=== PATIENT | female | born 1985 | race Caucasian/White ===

== ENCOUNTER 2017-02-20 15:31 | Outpatient (CLI) | payer OTHER ==
[~2017-02-20] VITALS: Ht 157.5 cm; Wt 105.5 kg
[~2017-02-20 15:31] MED LIST: PREN1TAB49 PO
[2017-02-20 15:44] VITALS: BP 192/80; PULSE 102; RESP 18; Ht 157.5 cm; Wt 105.5 kg
[2017-02-20] MEDS ORDERED: LISI40TA9 PO (16:04)
[2017-02-20] MEDS ORDERED: AMLO-147 PO (16:04)
--- NOTE | 2017-02-20 16:10 | PN ---
Date/Time of Note Date/Time of Note DATE: 02/20/17 TIME: 16:06 Outpatient Progress Note Chief Complaint Hypertension/diabetes//preeclampsia HPI Hypertension/patient blood pressure is still elevated, patient was preeclampsia , patient is taking blood pressure medication, and still blood pressure limited , no headache or dizziness, no local focal weakness, Diabetes/no polydipsia poly-hypoglycemia, patient has gestational diabetes, Preeclampsia/patient has preeclampsia, patient had a section, patient doing very well, Review of Systems Const: No Fever, no chills, no Wt. loss, no Fatigue, normal appetite, no diaphoresis. Eyes: No pain, no discharge, no redness, no visual change, no foreign body. ENT: No pain, no bleeding, no congestion, no sore throat, no dysphagia, no discharge or rhinitis. Lymph: No adenopathy, no tender nodes, no lymphedema. Resp: No SOB, no cough, no sputum, no wheezing, no chest pain. CV: No chest pain, no palpitaions, no GUTIERREZ, no PND, no edema. GI: Normal appetite, no pain, no nausea, no vomiting, no diarrhea, no blood, no constipation. : No frequency, no urgency, no dysuria, no hematuria, no flank pain, no discharge, no bleeding. Musc: No bone/joint pain, no back pain, no neck pain, no knee pain, no restricted ROM. Skin: No rash, no skin lesions, no erythema, no laceration, no bruising, no pruritus. Neuro: No NASCIMENTO, no dizziness, no syncope, no seizure, no focal-weakness. Endo: No polyuria, no polydypsia, no dry-skin, no temp-intolerance. Psych: No hallucinations, no depression, no anxiety, no suicidal ideation. Ext: No edema, no pain, no ulcer, no weakness. Physical Exam Vital Signs Date Time Temp Pulse Resp B/P Pulse Ox O2 Delivery O2 Flow Rate FiO2 02/20/17 15:44 98.8 102 18 192/80 97 Room Air General Appearance: A 31 year-old female who appears well-developed, well- nourished, in no acute distress. HEENT: Head normocephalic, atraumatic. Pupils equal, round, reactive to light and accommodate. Sclerae are no jaundice. Nasal turbinates pink without erythema or nasal discharge. Mucous membranes pink and moist without lesions. Oropharynx clear without any exudate or discharge. NECK: Supple. Trachea midline, No thyromegaly, No cervical lymphadenopathy, No mass, No carotid bruits, No JVD, Carotid pulses 2+ bilaterally. PULMONARY: Clear to auscultaion bilaterally, No retractions, Chest expansion symmetric bilaterally, no rales, no ronchi, no dulness on percussion. CARDIAC: Normal SI and S2, Regular rate and rythm, no murmur, gallop, or rub. GASTROINTESTINAL: Abdomen is soft, non-tender, Non Rigid, No distention, Positive bowel sounds x4 quadrants, Liver normal. SKIN: Warm, dry, no rash, no bruise, no echmosis. Scar of section, EXTREMITIES: Bilateral lower extremities normal, no edema, no phlabitus, pulse palpable, no contracture. MUSCULOSKELETAL: Spine Normal, Non-tender, Normal range of motion, No swelling, no deformity, no clubbing, or cyanosis, the patient has no edema to bilateral lower extremities, dorsalis pedis pulses palpable bilaterally. NEUROLOGIC: The patient is awake, alert, oriented, responding to yes/no questions appropriately, moving all extremities, cranial nerve intact, normal strenght, normal power, normal coordination, normal gait. Allergies Coded Allergies: No Known Allergies (Verified Allergy, Unknown, 11/28/14) PMH No smoking no drinking, section, Social Hx N no smoking no drinking, Family Hx Noncontributory Assessment/Plan Impression Hypertension poor control Gestational diabetes Preeclampsia resolved/ section Plan Continue all medication, patient has taken a blood pressure medication, still blood pressure significantly elevated, Patient will be given a prescription for clonidine, patient has blood pressure machine, patient will be taking clonidine 0.1 mg q. 8 hour as needed for blood pressure 150 systolic or above, Patient advised to lose weight, control the blood sugar, control the diet, follow with her winchman/crane operator, and primary care physician, Medications Home Meds Reported Medications Amlodipine Besylate* (Amlodipine Besylate*) 10 Mg Tablet, 10 MG PO DAILY, #30 TAB 02/20/17 Lisinopril* (Lisinopril*) 40 Mg Tablet, 40 MG PO DAILY, #30 TAB 02/20/17 Vits W-Ca,Fe,Fa(<1MG) () 1 Tab Tablet, 1 TAB PO 5/18/12 ALICIA ANGELO MD February 20, 2017 16:10
== END 2017-02-20 16:41 | disposition home or self-care (01) ==
LOC: DCC 15:31
PROVIDERS: ATTEND Internal Medicine
DX: I10 Essential (primary) hypertension (principal); E11.9 Type 2 diabetes mellitus without complications

== ENCOUNTER 2018-10-31 11:41 | Inpatient (IN) | payer OTHER ==
[~2018-10-31] VITALS: Ht 157.5 cm; Wt 125.8 kg
[~2018-10-31 11:41] MED LIST changes: +AMLO-147 PO; +LISI40TA3 PO
[2018-10-31] MEDS ORDERED: INSU100V3 IJ ×2 (12:10)
[2018-10-31] MEDS ORDERED: ASPI-535 PO (12:10)
[2018-10-31] MEDS ORDERED: INSU100C SQ ×2 (12:10)
[2018-10-31 12:11] VITALS: Ht 157.5 cm; Wt 125.8 kg
[2018-10-31 12:12] VITALS: BP 133/78; PULSE 81; RESP 20
[2018-10-31] MEDS ORDERED: OXYTOCIN 30 UNITS/LR 500 ML IV PRN (17:00)
[2018-10-31] MEDS ORDERED: CARBOPROST 250 MCG INJ IM PRN (17:00)
[2018-10-31] MEDS ORDERED: METHYLERGONOVINE 0.2 MG INJ IM PRN (17:00)
[2018-10-31] MEDS ORDERED: OXYTOCIN 30 UNITS/LR 500 ML IV SCH (17:00)
[2018-10-31] MEDS ORDERED: CEFAZOLIN 3 GM in DEXTROSE 5% 100 ML IV SCH (17:00)
[2018-10-31] MEDS ORDERED: MISOPROSTOL 200 MCG TAB PR PRN (17:00)
[2018-10-31] MEDS ORDERED: DEXTROSE 5%-LR 1,000 ML IV PRN (17:30)
[2018-10-31] MEDS: LACTATED RINGER'S 1,000 ML IV SCH ×2 (18:00→22:17)
[2018-11-01] VITALS (17 sets, daily range): BP systolic 138–200; BP diastolic 65–94; PULSE 69–100; RESP 17–19
[2018-11-01] MEDS ORDERED: LIDOCAINE 1% (MPF) 30 ML INJ ONE (00:12)
[2018-11-01] MEDS: LACTATED RINGER'S 1,000 ML IV SCH (06:10)
[2018-11-01] MEDS ORDERED: DEXTROSE 5%-LR 1,000 ML IV SCH (14:35)
--- NOTE | 2018-11-01 14:51 | NUR ---
NIRAV Note: Referral received stating patient with a hx of anxiety while 9 weeks . SW met with patient on the L&D unit. Patient is a 33 year old female admitted at 37 weeks gestation. SW explained the role of SW and the reason for the referral. Patient reports having a number of life stressors that triggered her anxiety. Specifically the patients was deported last year but [facility] The family was originally living between [facility] and since the patients came back to the , they are now living with the patients mother in the [place] area. Patient describes living with her mother as stressful because her mothers apartment is not equip for her, her and their three children (ages 17, 6, and 21 months). Patient also endorsed having limited monthly income as she is currently receiving unemployment and her is unable to gain typical employment due to his immigration status. Patient reports that after she has recovered from the delivery of this baby, the family has made plans to move to [place]. Patient states that she has not been able to obtain a car seat due to limited financial resources. The patient is enrolled with [facility] services and receives food stamps monthly. Patient reports not receiving any lora aide because she was told her monthly income is too high. SW encouraged patient to follow up with [facility] regarding the need for lora aide assistance now that her family size will be increasing. This board writer e-mailed the [employer] program in regards to patient being unable to purchase a car seat. SW will endorse car seat follow up to weekday NIRAV.
[2018-11-01] MEDS ORDERED: morphine SULFATE/PF (10 MG/10 ML) INJ ONE (16:40)
[2018-11-01] MEDS ORDERED: BUPIVACAINE 0.75%/DEXT (SPINAL) 2 ML INJ ONE (16:40)
--- NOTE | 2018-11-01 17:07 | PREAC ---
Date/Time of Note Date/Time of Note DATE: 11/01/18 TIME: 17:02 Anesthesia Eval and Record Evaluation Time Pre-Procedure Interview DATE: 11/01/18 TIME: 16:19 Age 33 Sex female NPO: 8 hrs Preoperative diagnosis iup @ 37 wks., , gdm, spotting, non reassuring status, intrapartum htn, prev. c/s x 2, sterilization request Planned procedure repeat c/s, btl Past Medical History Past Medical History: Includes : : (8), Para: (3), Gestational age: (37 wks.), Gestational diabetes, Other (intrapartum htn) Surgery & Anesthesia Issues No known issue Meds Anticoagulation: No Beta Criss within 24 hr: No Reason Beta Criss not given: Pt. not on B-Criss Reported Medications Insulin Regular, Human (Humulin R) 100 Unit/1 Ml Vial, 18 UNIT IJ QHS, VIAL 10/31/18 Insulin Lispro (Humalog) 100 Unit/1 Ml Cartridge, 18 UNIT SQ AC LUNCH, EA 10/31/18 Insulin Lispro (Humalog) 100 Unit/1 Ml Cartridge, 28 UNIT SQ AC BREAKFAST, EA 10/31/18 Insulin Regular, Human (Humulin R) 100 Unit/1 Ml Vial, 46 UNIT IJ AC BREAKFAST, VIAL 10/31/18 Aspirin Ec (Aspir 81) 81 Mg Tablet.dr, 81 MG PO DAILY, #30 TAB 10/31/18 Vits W-Ca,Fe,Fa(<1MG) () 1 Tab Tablet, 1 TAB PO 02/28/12 Discontinued Reported Medications Amlodipine Besylate* (Amlodipine Besylate*) 10 Mg Tablet, 10 MG PO DAILY, #30 TAB 02/20/17 Lisinopril* (Lisinopril*) 40 Mg Tablet, 40 MG PO DAILY, #30 TAB 02/20/17 Current Medications Lactated Ringer's 1,000 ml @ 125 mls/hr Q8H IV Last administered on 11/01/18at 06:10; Admin Dose 125 MLS/HR; Start 10/31/18 at 16:57 Cefazolin Sodium 3 gm/Dextrose 100 ml @ 100 mls/hr ONCE IV ; Start 10/31/18 at 17:00 Oxytocin/Lactated Ringer's 500 ml @ 125 mls/hr POST IV ; Start 10/31/18 at 17:00 Oxytocin/Lactated Ringer's 500 ml @ 0 mls/hr ONCE PRN IV VAGINAL BLEEDING; Start 10/31/18 at 17:00 Methylergonovine Maleate (Methergine) 0.2 mg ONCE PRN IM VAGINAL BLEEDING; Start 10/31/18 at 17:00 Carboprost Tromethamine (Hemabate) 250 mcg ONCE PRN IM VAGINAL BLEEDING; Start 10/31/18 at 17:00 Misoprostol (Cytotec) 1,000 mcg ONCE PRN OH VAGINAL BLEEDING; Start 10/31/18 at 17:00 Dextrose/Lactated Ringer's 1,000 ml @ 125 mls/hr Q8H PRN IV BLOOD SUGAR LESS THAN 80 Last administered on 11/01/18at 14:39; Admin Dose 125 MLS/HR; Start 10/31/18 at 17:30 Meds reviewed: Yes Allergies Coded Allergies: No Known Allergy (Unverified , 10/31/18) Allergies Reviewed: Yes Labs/Studies Labs Reviewed: Reviewed by anesthesiologist Result Diagram: 10/31/18 1336 10/31/18 1730 Laboratory Tests 10/31/18 17:30 Blood Bank Test 10/31/18 17:30 Antibody Screen NEGATIVE Blood Type O POSITIVE Rh Immune Globulin Candidate NO test: Positive Studies: ECG (n/a), CXR (n/a) Pre-procedure Exam Last vitals Vital Signs Date Temp Pulse Resp B/P (MAP) Pulse Ox O2 O2 Flow FiO2 Time Delivery Rate 10/31/18 97.6 81 20 133/78 Room Air 12:12 (96) Airway: Adequate mouth opening, Adequate thyromental dist Mallampati: Mallampati III Teeth: Normal Lung: Normal Heart: Normal ASA Physical Status ASA physical status: 3 Emergency: E Planned Anesthetic General/MAC: TIVA (post baby) Neuraxial: Spinal Planned Pain Management Sub-arachniod narcotics Pre-operative Attestations Prior to commencing anesthesia and surgery, the patient was re-evaluated, there was verification of: *The patient's identity *The results of appropriate recent lab work and preoperative vital signs *The above evaluation not changing prior to induction *Anesthetic plan, risk benefits, alternative and complications discussed with patient/family; questions answered; patient/family understands, accepts and wishes to proceed. 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
--- NOTE | 2018-11-01 17:08 | PAC ---
Date/Time of Note Date/Time of Note DATE: 11/01/18 TIME: 21:00 Post-Anesthesia Notes Post-Anesthesia Note Last documented vital signs Vital Signs Date Temp Pulse Resp B/P (MAP) Pulse Ox O2 O2 Flow FiO2 Time Delivery Rate 10/31/18 97.6 81 20 133/78 Room Air 12:12 (96) Activity: WNL Respiratory function: WNL Cardiovascular function: WNL Mental status: Baseline Pain reasonably controlled: Yes Hydration appropriate: Yes Nausea/Vomiting absent: Yes IZZY VELEZ MD Nov 01, 2018 17:08
[2018-11-01] MEDS ORDERED: LACTATED RINGER'S 1,000 ML IV ONE (17:11)
--- NOTE | 2018-11-01 17:11 | OPPN ---
Date/Time of Note Date/Time of Note DATE: 11/02/18 TIME: 00:30 Anesthesia Follow up Anesthesia Follow up Last documented vital signs Vital Signs Date Temp Pulse Resp B/P (MAP) Pulse Ox O2 O2 Flow FiO2 Time Delivery Rate 10/31/18 97.6 81 20 133/78 Room Air 12:12 (96) Respiratory function: WNL Cardiovascular function: WNL Comments pod #1 duramorph it followup. S: pt. pod #1. min. bt pain. min. n/v. min. need for bt pain meds ie., nsaids, opiates. ambulating O: vss, afeb. A: min bt pain sec. to it mso4. P: no complications. IZZY VELEZ MD Nov 01, 2018 17:11
[2018-11-01] MEDS ORDERED: METOCLOPRAMIDE 10 MG INJ ONE (17:17)
[2018-11-01] MEDS ORDERED: ONDANSETRON 4 MG INJ ONE (17:17)
[2018-11-01] MEDS ORDERED: OXYTOCIN 10 UNIT INJ ONE (17:18)
[2018-11-01] MEDS ORDERED: MIDAZOLAM 1 MG/ML 2 ML INJ ONE (17:18)
[2018-11-01] MEDS ORDERED: METOCLOPRAMIDE 10 MG INJ IV PRN (17:30)
[2018-11-01] MEDS ORDERED: DIPHENHYDRAMINE 50 MG INJ IV PRN ×2 (17:30)
[2018-11-01] MEDS ORDERED: NALBUPHINE HCL (10 MG/1 ML) INJ IV PRN (17:30)
[2018-11-01] MEDS ORDERED: ONDANSETRON 4 MG INJ IV PRN ×2 (17:30)
[2018-11-01] MEDS ORDERED: ZOLPIDEM 5 MG TAB PO PRN (17:30)
[2018-11-01] MEDS ORDERED: MEPERIDINE 25 MG INJ IV PRN (17:30)
[2018-11-01] MEDS ORDERED: MIDAZOLAM 1 MG/ML 2 ML INJ IV PRN (17:30)
[2018-11-01] MEDS ORDERED: NALOXONE (0.4 MG/ML) INJ IV PRN (17:30)
[2018-11-01] MEDS ORDERED: HYDROmorphONE 0.5 MG/0.5 ML SYG IV PRN ×2 (17:30)
[2018-11-01] MEDS ORDERED: DIPHENHYDRAMINE 50 MG INJ ONE (18:33)
[2018-11-01] MEDS ORDERED: LACTATED RINGER'S 1,000 ML IV SCH (18:49)
[2018-11-01] MEDS ORDERED: OXYTOCIN 30 UNITS/LR 500 ML IV SCH (18:49)
--- NOTE | 2018-11-01 18:57 | OPR ---
Operative Report Planned Procedure Procedure date Nov 01, 2018 Procedure(s) Repeat with bilateral tubal ligation. Performed by see signature line Debt Collection Specialist: ESTEFANY COX M.D. Anesthesiologist: IZZY VELEZ MD Pre-procedure diagnosis IUP at 37w 3d. A2 diabetic, on insulin. Gestational hypertension. Obesity. Desires permanent sterilization. 2 [id number] Anesthesia Type: Ntuem0m spinal Post-Procedure Post-procedure diagnosis Same. Findings Viable baby boy weighing 3870 grams or 8#b 9 oz, 19.5" long, and with Apgars of 8/9. Estimated Blood Loss: 400 - 500 mls Specimen(s) bilateral tubes. Grafts/Implant(s) none Complication(s) none Pt Condition post procedure: stable Disposition: PACU Procedure Description Under satisfactory spinal anesthesia, the patient was prepped and draped and placed in a supine position, tilted to the left. Pfannenstiel incision was made, carried through the subcutaneous tissue. Bleeders brought under control with electrocautery. Fascia incised to the length of the incision. Rectus muscles from the fascia, divided midline. Peritoneum exposed, entered through a transverse incision. Transverse incision was made in the lower segment of the uterus. Amniotic sac ruptured. Clear amniotic fluid noted. The baby was OP and was delivered with the assist of a vacuum in order to flex the head.The head was delivered and then the rest of the body. The mouth and nares were bulb suctioned. The cord was doubly clamped and cut. The baby was brought to the warmer and the team for immediate attention. The placenta was delivered manually intact. Uterine cavity was cleaned with wet sponge and drainage established. Uterus closed in the abdomen in 2 layers using #1 chromic in continuous fashion. Peritoneal cavity irrigated with warm saline. Bilateral salpingectomies were done with some difficulty as the uterus remained in the abdomen. Sponge, needle and instrument count reported to be correct. Abdominal peritoneum closed with 2-0 Chromic continuously. Rectus muscle approximated with the same suture. Fascia closed with 0-Vicryl. The subcutaneous tissue was irrigated and closed with 2-0 Chromic and skin was closed with 3-0 Monocryl in a subcuticular stitch. Steristrips with Mastosol were placed. Estimated blood loss 500 mL. Urine was clear. A pressure dressing was applied over all and the pt was transferred to the recovery room in excellent condition. SARITA VERNON MD Nov 01, 2018 18:57
[2018-11-01] MEDS ORDERED: LANOLIN HPA 1 PKT TOP PRN (19:00)
[2018-11-01] MEDS ORDERED: NACL 0.9% 3 ML SYG IV SCH (19:00)
[2018-11-01] MEDS ORDERED: OXYTOCIN 30 UNITS/LR 500 ML IV PRN (19:00)
[2018-11-01] MEDS ORDERED: METHYLERGONOVINE 0.2 MG INJ IM PRN (19:00)
[2018-11-01] MEDS ORDERED: OXYCODONE/ACETAMINOPHEN (5/325) TAB PO PRN (19:00)
[2018-11-01] MEDS ORDERED: MISOPROSTOL 200 MCG TAB PR PRN (19:00)
[2018-11-01] MEDS ORDERED: CARBOPROST 250 MCG INJ IM PRN (19:00)
[2018-11-01] MEDS ORDERED: LABETALOL HCL 20MG INJ ONE (19:51)
[2018-11-01] MEDS ORDERED: LABETALOL HCL 20MG INJ IV ONE (20:00)
[2018-11-01] MEDS: KETOROLAC 30 MG INJ IV PRN (20:36)
--- NOTE | 2018-11-02 01:02 | NUR ---
Late entry: @1929 Report received from L&D nurse, Christian Beltran RN. Assumed care of pt. Dr. Rainey notified of pt's elevated BP 189/88. Pt asymptomatic. No new orders given. @1945 Pt's BP 196/94. BP auto rechecked after a minute and it went up 200/89. Pt denies H/A, blurry vision or epigastric pain. Pt stated she feels a little bit dizzy. Dr. Mckinnon laborist notified. Order received to give Labetalol 20 mg IV push and recheck BP in 20 minutes. Call M.D for result. Order carried out. @1957 Labetalol 20 mg given IV by Joann, charge nurse. No distress noted. @2014 Pt's BP 180/[address] Mckinnon aware of pt's PIH lab results. No new orders given. @2029 Pt's BP 194/75. Pt c/o incisional pain with pain level 7/10. Toradol 30 mg IV given. Pt continues to deny H/A, blurry vision, or epigastric pain. Pt states she still feels a little dizzy. Dr. Mckinnon notified. Per Dr. Mckinnon, call her if BP is above 170s/90s. Pt encouraged to get some rest. Lights were dimmed. @2032 Dr. Mckinnon came to bedside to see pt. Dr. Mckinnon made aware of pt's BP 184/83. No orders given. @2102 Pr verbalized pain relief. Pain level down to 2/10. BP 164/72. @2114 Pt's BP 171/75. Dr. Mckinnon currently at the delivery. Pt continues to deny H/A, blurry vision, or epigastric pain. Pt states dizziness is going away. Pt being closely monitored. @2129 Pt's BP 160/70. Pt resting at this time. @2299 Sophia care rendered. Small lochia noted. Gown changed. @2300 Vitals signs are stable. @2304 Pt transferred to [facility] via [facility] in stable condition. Report given to Julia Parr RN
[2018-11-02 03:30] VITALS: BP 139/66; PULSE 76; RESP 21
--- NOTE | 2018-11-02 05:14 | NUR ---
EOSS: STABLE CONDITION. ASYMPTOMATIC. NITZA CARE DONE. VITAL SIGNS MONITORED. BONDING WELL WITH BABY. WILL CONTINUE TO MONITOR.
[2018-11-02] MEDS: KETOROLAC 30 MG INJ IV PRN ×2 (06:11→11:20)
[2018-11-02 08:00] VITALS: BP 144/78; PULSE 86; RESP 18
[2018-11-02 09:00] VITALS: BP 128/65; PULSE 83; RESP 18
[2018-11-02] MEDS ORDERED: INFLUENZA VIRUS VACCINE 0.5 ML (DISPENSING) IM* ONE (10:00)
[2018-11-02] MEDS ORDERED: IBUPROFEN 800 MG TAB PO SCH (12:00)
[2018-11-02 12:30] VITALS: BP 158/77; PULSE 74; RESP 18
[2018-11-02] MEDS: LABETALOL 200 MG TAB PO SCH ×2 (13:45→21:00)
--- NOTE | 2018-11-02 14:48 | NUR ---
SW NOTE: DC PLANNING Received a call from Alley of [facility]. She stated the pt signed up with their program and they will f/u in 2 weeks. Pt informed Alley they have a car seat in storage which they used for the pt's daughter and they plan to bring that for day of discharge. Alley also discussed pt's sleeping arrangements with the pt and discussed options. The family plans to make arrangements to purchase a bassinet/crib from a [employer]rift shop. Alley stated she has also reached out to their tool programmer for additional resources. Baby may be discharged to the mother when medically cleared. RN to provide the discharge instructions at time of discharge. SW to remain available.
--- NOTE | 2018-11-02 15:00 | NUR ---
Pericare done then got patient up to the chair and she tolerated it well.
--- NOTE | 2018-11-02 15:00 | NUR ---
Diabetes Education Referral: Thank you for the referral. HbA1c (09/24/18) 7.1%; 125kg; ; delivered at 37.3 weeks a 8lb 9oz baby boy Pt stated she did not have T2DM before the but she stated she did have GDM during her last (s). Pt stated both her patents have T2DM and many other family members. Explained the risk of developing T2DM in the future. Discussed how exercise and diet can possibly prevent the onset. Pt verbalized that she wants to start loosing weight and walking more. Discussed the importance of continuing to monitor her BG AC meals until she follows up with her provider. Reviewed her new BG targets. Pt stated she has enough supplies at home. All questions answered.
--- NOTE | 2018-11-02 15:30 | NUR ---
Dr Mckinnon went to patients room and checked the patient,she is aware about the patients bp status ranging from 140s to 158 systolic and diastolics of 74 to 78,she is also aware of the blood sugar results.No new orders given,she said she already ordered labetatlol 200 mg po BID.
--- NOTE | 2018-11-02 15:58 | QN ---
Documentation Comment just bulping no flatus bp 141/77 FBS 129 2hr postprandial 129 abdomen soft wound dry lochia min calf neg for tenderness I & O ok A s/p RLTCS stable P as ordered had diabetic class KARO GALVAN MD Nov 02, 2018 15:58
[2018-11-02 16:00] VITALS: BP 141/77; PULSE 76; RESP 18
--- NOTE | 2018-11-02 17:30 | NUR ---
Eoss:Ambulated patient back to the bed,denies headache,dizziness,epigastric pain or blurry vision,rowley catheter discontinued and ivf discontinued.Bonding well with baby.
[2018-11-02] MEDS: IBUPROFEN 800 MG TAB PO SCH (18:26)
[2018-11-02 21:00] VITALS: BP 130/63; PULSE 87; RESP 19
[2018-11-03 04:00] VITALS: BP 130/61; PULSE 85; RESP 20
--- NOTE | 2018-11-03 04:33 | NUR ---
EOSS: STABLE CONDITION. VOIDED WELL, SHOWERED. LOCHIA MINIMAL. STERI STRIPS OPEN TO AIR. BONDING WELL WITH BABY.
[2018-11-03] MEDS: IBUPROFEN 800 MG TAB PO SCH ×5 (05:26→23:18)
[2018-11-03 08:30] VITALS: BP 145/72; RESP 18
[2018-11-03] MEDS: LABETALOL 200 MG TAB PO SCH ×2 (08:38→20:59)
[2018-11-03 12:15] VITALS: BP 158/72
[2018-11-03] MEDS: OXYCODONE/ACETAMINOPHEN (5/325) TAB PO PRN ×2 (14:06→21:00)
--- NOTE | 2018-11-03 15:15 | NUR ---
ACCU CHEC 193, PATIENT STATES HAD TWO PIECES OF SWEET BREAD , WILL REPEAT IN TWO HOURS
[2018-11-03 16:48] VITALS: BP 155/83; PULSE 74; RESP 20
--- NOTE | 2018-11-03 17:00 | NUR ---
EOSS ; PATIENT BP STABLE , ACC CHECK 141 AFTER 2 HOURS pp, BOUNDING WELL WITH INFANT , NO D/O PAIN @ THIS TIME , CONTINUE PLAN OF CARE
--- NOTE | 2018-11-03 17:42 | QN ---
Documentation Comment had Bowel movement baby is under light vss afebrile bp 140/70 BS 140 150 abdomen soft wound dry calf neg for tenderness lochia min A stable post R C/S#2 P as ordered KARO GALVAN MD Nov 03, 2018 17:42
[2018-11-03 20:00] VITALS: BP 172/73; PULSE 79; RESP 19
--- NOTE | 2018-11-03 21:30 | NUR ---
Blood pressure recheck: 144/76. P: 78. Patient stated that she was very upset and crying before when she was speaking to her on the phone. Concerned about her 's bilirubin and his potential need to have to stay in the hospital beyond their projected discharge date. She has a 6 y.o. and a 2 y.o. at home that she needs to care for also. She also expressed concern that her previous blood pressures would be on "her record". Was told that they would be charted along with this note about her emotional state when they were taken. That appeared to ease some of the patient's concerns. Denied headache and visual changes along with epigatric pain. Was told to call the nurse immediately, if she experience any of these symptoms. No pretibial edema and no clonus.
--- NOTE | 2018-11-03 23:40 | NUR ---
PAGED DR. MONTILLA AT [employer] AND AT [facility] TO INFORM OF PATIENT BP 163/79. NO RESPONSE. DR. MONTILLA IS LINE APPLIANCE ASSEMBLER FOR DR. STONE. PATIENT CONTINUES TO DENY HEADACHE, VISION CHANGES, EPIGASTRIC PAIN. C/O OF EXTREME FATIGUE.
[2018-11-03 23:50] VITALS: BP 163/79; RESP 19
[2018-11-04] VITALS (29 sets, daily range): BP systolic 134–183; BP diastolic 57–93; PULSE 81–96; RESP 16–20
[2018-11-04] MEDS ORDERED: MAGNESIUM SULFATE 2 GM/50 ML 50 ML IVPB ONE (01:00)
[2018-11-04] MEDS ORDERED: MAGNESIUM SULFATE 4 GM/100 ML 100 ML IVPB ONE ×2 (01:00→03:30)
--- NOTE | 2018-11-04 01:00 | NUR ---
RECEIVED CALL FROM DR. MONTILLA, REPORTED ELEVATED BP, AND RECEIVED ORDERS FOR MAGNESIUM SULFATE 4G BOLUS, 2GM/HR MAINTENANCE, CBC, CMP, URIC ACID, LAB MAG LEVEL Q6H AND MONITOR I&O.
--- NOTE | 2018-11-04 01:35 | NUR ---
STARTED MAGNESIUM SULFATE BOLUS 4GM ORDERED BY DR. MONTILLA.
[2018-11-04] MEDS: LACTATED RINGER'S 1,000 ML IV SCH ×2 (01:49→15:01)
[2018-11-04] MEDS ORDERED: MAGNESIUM SULFATE 4 GM/100 ML 100 ML IVPB SCH (02:30)
[2018-11-04] MEDS: IBUPROFEN 800 MG TAB PO SCH ×4 (05:47→23:34)
[2018-11-04] MEDS: MAGNESIUM SULFATE 20 GM/500 ML 500 ML IV SCH ×3 (05:52→22:28)
[2018-11-04] MEDS ORDERED: LABETALOL HCL 20MG INJ IV PRN (06:15)
--- NOTE | 2018-11-04 07:15 | NUR ---
PATIENT REQUESTED INFANT TO RETURN TO HER ROOM. NURSERY STAFF BROUGHT TO PATIENT'S ROOM.
--- NOTE | 2018-11-04 07:18 | NUR ---
EOSS: PATIENT IS IN STABLE CONDITION. MAGNESIUM SULFATE RUNNING 2GM/HR. PATIENT DENIES EPIGASTRIC PAIN, HEADACHE, AND BLURRY VISION. BONDING WELL WITH INFANT, FEEDING FORMULA VIA BOTTLE. FUNDUS IS FIRM AT 1FB BELOW UMBILICUS WITH SMALL AMOUNT OF LOCHIA. PATIENT IS AFEBRILE.
[2018-11-04] MEDS: LABETALOL 200 MG TAB PO SCH ×2 (09:00→21:55)
[2018-11-04] MEDS ORDERED: DIPHTH/TET/ACEL PERTUSS (ADULT) 0.5 ML VIAL IM* ONE (09:00)
--- NOTE | 2018-11-04 10:20 | NUR ---
SPOKE TO ODALYS IN PHARMACY TO INQUIRE ABOUT LABETALOL, STATED THE PRN LABETALOL NEED A MAX DOSAGE AND CLARIFICATION FROM Olamide. DR. AYALA COVERING DR. CHASE MD TO BE CALLED.
[2018-11-04] MEDS: OXYCODONE/ACETAMINOPHEN (5/325) TAB PO PRN (11:30)
--- NOTE | 2018-11-04 12:25 | NUR ---
DR. HARTADIAN HERE TO SEE PT. INFORMED OF BLOOD PRESSURES, PT. DENIES ANY SIGNS OR SYMPTOMS OF PRE ECLAMPSIA. ORDER RECEIVED TO GIVE LABETALOL 100 MG PO X1, D/C IV LABETALOL AND TO CALL M.D. IF BLOOD PRESSURES ARE GREATER THAT OR EQUAL TO 160/110. PT. WILL CONTINUE TO TAKE 200 MG OF LABETALOL TWICE DAILY.
[2018-11-04] MEDS ORDERED: LABETALOL 100 MG TAB PO ONE (12:30)
--- NOTE | 2018-11-04 18:56 | NUR ---
EOSS: SYSTOLIC BLOOD PRESSURE REMAINS ELEVATED, PT. TAKING PO BLOOD PRESSURE MEDS. PT. DENIES ANY SIGNS OR SYMPTOMS OF PRE ECLAMPSIA. PT. HAS IV MAGNESIUM SULFATE INFUSING. BREAST FEEDING WITH SOME ASSISTANCE. FUNDUS REMAINS FIRM WITH SCANT TO SMALL AMOUNT OF LOCHIA, INCISION REMAINS INTACT WITH STERI STRIPS. PT. OOB WITH ASSISTANCE WHILE ON IV FLUIDS. BONDING WELL WITH BABY.
--- NOTE | 2018-11-04 20:05 | NUR ---
DR. AYALA CALLED. SHE WOULD LIKE PATIENT TO TAKE LABETALOL 200MG AT 2100 TONIGHT, THEN START Q8HRS BEGINNING AT 7AM, 3PM, AND 11PM. SHE WOULD LIKE TO D/C THE MAGNESIUM SULFATE AT MIDNIGHT. IN ADDITION, SHE WOULD LIKE THE PATIENT TO SEE A HAM CURER TOMORROW TO ASSESS THE NEED FOR THE PATIENT TO BE PUT ON MEDICATION FOR HIGH BLOOD GLUCOSE. SHE WOULD LIKE NURSING STAFF TO CALL DR. ANDREW WHO IS THE LABORIST GALLITO IF THE BP IS >/= 160/110.
--- NOTE | 2018-11-04 20:08 | PN ---
Date/Time of Note Date/Time of Note DATE: 11/04/18 TIME: 19:56 OB Subjective Subjective Subjective POD#3 Patient is doing well. She denies nausea, vomiting, shortness of breath, chest pain, headache. She has been ambulating without difficulty, tolerating regular diet. Pain is well controlled on current medications OB Objective Objective Objective Vital Signs Date Temp Pulse Resp B/P (MAP) Pulse Ox O2 O2 Flow FiO2 Time Delivery Rate 11/04/18 91 18 155/67 Room Air 19:22 (96) 11/04/18 98.0 15:03 11/04/18 99 08:00 General: AAO X 3, comfortable, NAD, appropriate mood and affect. Heart: RRR +S1, +S2, no murmurs. Lungs: Clear to auscultation (B/L), no rales, rhonchi or wheezing. ABD: +BS. Soft, non-tender. Uterus 2 cm below umbilicus Incision: Clear, dry, intact. No erythema, drainage or induration. Flank: No CVA tenderness (B/L) LE: Mild edema. No clubbing, cyanosis, thigh or calf tenderness (B/L). Homans 'sign is negative OB Assessment/Plan Other plan: 33-year-old with a 2 gestational diabetes and gestational hypertension s/p delivery and bilateral salpingectomy at 37 weeks and 3 days.POD#3 - AF, VSS - Baby is doing well, at bed side. She is bonding well - Contraception methods with R/B/A/FR discussed - Continue care 2) gestational hypertension versus preeclampsia: Her blood pressure increased last night. Magnesium sulfate per protocol ordered by Dr. Marvin. She received magnesium sulfate at 1 AM this morning. Continue magnesium sulfate for 24 hours She she received 1 dose of labetalol 20 mg IV this morning. She is currently on labetalol 200 mg every 12 hours, will increase the dose to 200 mg every 8 hours after 9 PM tonight. She has no symptom of severe features. 3) 82 gestational diabetes: She was on insulin during . Check blood glucose before meals and at bedtime. She was seen by ict educator, continue follow-up with ict educator. YULISSA AYALA Nov 04, 2018 20:07
[2018-11-04] MEDS ORDERED: hydrALAzine 20 MG INJ IV ONE (22:00)
[2018-11-04] MEDS: NIFEdipine (XL) 30 MG TAB PO SCH (23:34)
[2018-11-05] VITALS (9 sets, daily range): BP systolic 134–163; BP diastolic 62–78; PULSE 86–101; RESP 17–20
--- NOTE | 2018-11-05 00:25 | NUR ---
DISCONTINUED MAGNESIUM SULFATE. HEPLOCK LEFT ON PATIENT RIGHT HAND.
[2018-11-05] MEDS: LACTATED RINGER'S 1,000 ML IV SCH (04:20)
[2018-11-05] MEDS: IBUPROFEN 800 MG TAB PO SCH ×3 (06:10→17:40)
--- NOTE | 2018-11-05 06:34 | NUR ---
EOSS: PATIENT IN STABLE CONDITION. LAST BP AT 0610AM WAS 158/77. PATIENT EXPRESSED HER DESIRE TO GO HOME TODAY. I COMMUNICATED TO THE PATIENT THE POSSIBILITY OF SPEAKING WITH THE DOCTOR IN THE MORNING ABOUT WANTING TO GO HOME AND WHAT MEDICATIONS SHE CAN TAKE TO CONTROL HER HIGH BP. PATIENT FUNDUS FIRM WITH SMALL TO SCANT AMOUNT OF LOCHIA. PATIENT AMBULATING WELL AND VOIDING WELL. BONDING WELL WITH . FEEDING INFANT FORMULA, MEDICAL INDICATION, VIA BOTTLE. OCCASIONALLY , AND I PROVIDED PATIENT WITH BREAST PUMP PER PATIENT'S REQUEST. FOB AT BEDSIDE.
[2018-11-05] MEDS ORDERED: LABETALOL 200 MG TAB PO SCH (07:00)
--- NOTE | 2018-11-05 07:02 | NUR ---
CALLED LAB TO CONFIRM RECEIPT OF URINE FOR PIH PANEL. LAB CONFIRMED RECEIPT.
--- NOTE | 2018-11-05 08:12 | NUR ---
Glycemic Management Referral: Thank you for the referral. R: Consider starting Metformin 500 mg BID. After ~2 weeks, consider increasing dose to 850 BID or 1000 mg BID based on her BG levels.
[2018-11-05] MEDS ORDERED: NIFEdipine (XL) 30 MG TAB PO SCH (09:00)
[2018-11-05] MEDS: NIFEdipine (XL) 30 MG TAB PO SCH (09:07)
[2018-11-05] MEDS ORDERED: NIFEdipine (XL) 30 MG TAB PO ONE (09:30)
--- NOTE | 2018-11-05 09:30 | NUR ---
DR. BAXTER IS IN THE UNIT AND NOTIFIED IN PERSON THAT BP WAS 156/78 AT 0815 AND 150/73 AT [address] BAXTER ORDERED TO CHANGE NIFEDIPINE XL DOSE TO 60 MG PO DAILY STARTING TOMORROW, GAVE ANOTHER NIFEDIPINE XL 30 PO X 1 DOSE NOW, CHANGE LABETOLOL FREQUENCY TO BID, DO HGB A1C, CHECK BLOOD GLUCOSE BEFORE MEALS AND Q HS, AND CALL HER IF BP ABOVE 160/110. DR. BAXTER ALSO NOTIFIED THAT DAVID, DIABETIC MOLDER PIPE COVERING ADVISED TO START METFORMIN.
--- NOTE | 2018-11-05 09:50 | NUR ---
DR. BAXTER IS IN THE PATIENT ROOM AND NOTIFIED IN PERSON THAT BP WAS 153/74 WITH HR OF 89 AT 0945, AND 150/62 WITH HR OF 94 AT 0947 BEFORE GIVING ANOTHER NIFEDIPINE XL 30 MG PO X [address] DOSE PER HER ORDER[address] BAXTER STATED SHE WILL KEEP THE PATIENT 1 MORE DAY TO MONITOR BLOOD PRESSURE.
--- NOTE | 2018-11-05 11:15 | NUR ---
HAND EXPRESSION TAUGHT, SET UP THE PUMP AND TEACH PATIENT HOW TO PUMP AND HOW TO CLEAN PUMP PARTS. INSTRUCTED PATIENT TO MASSAGE BREASTS FIRST BEFORE PUMPING. PATIENT VERBALIZED UNDERSTANDING. CAT WU CAME TO SEE THE PATIENT AND WILL FOLLOW UP PER DR. JIM RAM.
--- NOTE | 2018-11-05 11:30 | NUR ---
DAVID, DIABETIC DEFLECTOR OPERATOR CALLED THE UNIT AND STATED SHE IS GOING HOME FOR FAMILY EMERGENCY AND CAN NOT SEE THE PATIENT TODAY BUT SHE WILL FOLLOW UP.
--- NOTE | 2018-11-05 12:22 | NUR ---
DR. BAXTER NOTIFIED BY PHONE BY CHRISTIAN, CHARGE NURSE THAT HGB A1C IS 7.2. NO NEW ORDERS RECEIVED.
--- NOTE | 2018-11-05 12:43 | PN ---
Date/Time of Note Date/Time of Note DATE: 11/05/18 TIME: 12:39 OB Subjective Subjective Subjective Denies any headache, blurred vision, epigastric pain or right upper quadrant pain. Denies any history of diabetes in . Breast-feeding. Ambulating. Decreased vaginal bleeding. Tolerated regular diet. Passed flatus. OB Objective Objective Objective Appearance: Alert and oriented x4 does not appear to be in any acute distress Abdomen: Soft, fundus firm and appropriate tenderness, no fundal tenderness. Incision: Clean dry and intact extremities 2+ bilateral symmetric nonpitting edema lower extremities Blood sugars have been checked 2-hour postprandial. Advise RN to check the blood sugar before meals. History of diabetes unclear. Laboratory Tests Test 11/03/18 15:17 11/03/18 17:04 11/03/18 20:49 11/04/18 06:36 Bedside Glucose 193 mg/dL 141 mg/dL 150 mg/dL White Blood 7.1 10^3/ul Count Red Blood Count 3.02 10^6/ul Hemoglobin 9.0 g/dl Hematocrit 28.2 % Mean 93.4 fl Corpuscular Volume Mean 29.8 pg Corpuscular Hemoglobin Mean 31.9 g/dl Corpuscular Hemoglobin Conc ent Red Cell 15.0 % Distribution Width Platelet Count 237 10^3/UL Mean Platelet 10.2 fl Volume Immature 0.300 % Granulocytes % Neutrophils % 64.8 % Lymphocytes % 27.9 % Monocytes % 5.2 % Eosinophils % 1.7 % Basophils % 0.1 % Nucleated Red 0.0 /100WBC Blood Cells % Immature 0.020 10^3/ul Granulocytes # Neutrophils # 4.6 10^3/ul Lymphocytes # 2.0 10^3/ul Monocytes # 0.4 10^3/ul Eosinophils # 0.1 10^3/ul Basophils # 0.0 10^3/ul Nucleated Red 0.0 10^3/ul Blood Cells # Sodium Level 140 mmol/L Potassium Level 4.3 mmol/L Chloride Level 105 mmol/L Carbon Dioxide 27 mmol/L Level Anion Gap 8 Blood Urea 8 mg/dl Nitrogen Creatinine 0.49 mg/dl Est Glomerular > 60 mL/min Filtrat Rate mL/min Glucose Level 136 mg/dl Uric Acid 6.0 mg/dl Calcium Level 8.5 mg/dl Magnesium Level 3.8 mg/dl Total Bilirubin 0.1 mg/dl Direct 0.00 mg/dl Bilirubin Indirect 0.1 mg/dl Bilirubin Aspartate Amino 27 IU/L Transf (AST/SGO T) Alanine 20 IU/L Aminotransferas e (ALT/SGPT) Alkaline 137 IU/L Phosphatase Total Protein 6.1 g/dl Albumin 3.0 g/dl Globulin 3.10 g/dl Albumin/Globuli 0.96 n Ratio Test 11/04/18 08:37 11/04/18 12:01 11/04/18 12:26 11/04/18 16:16 Bedside Glucose 145 mg/dL 147 mg/dL 139 mg/dL Magnesium Level 4.3 mg/dl Test 11/04/18 18:25 11/04/18 23:13 11/04/18 23:19 11/04/18 23:47 Magnesium Level 4.6 mg/dl Urine Color STRAW Urine Clarity CLEAR Urine pH 6.0 Urine Specific 1.005 [place] Urine Ketones NEGATIVE mg/dL Urine Nitrite NEGATIVE mg/dL Urine Bilirubin NEGATIVE mg/dL Urine NEGATIVE mg/dL Urobilinogen Urine Leukocyte NEGATIVE [place]/ul Esterase Urine 99 /HPF Microscopic RBC Urine 4 /HPF Microscopic WBC Urine Squamous FEW /HPF Epithelial Cell s Urine 3+ mg/dL Hemoglobin Urine Glucose NEGATIVE mg/dL Urine Total NEGATIVE mg/dl Protein White Blood 6.8 10^3/ul Count Red Blood Count 3.07 10^6/ul Hemoglobin 9.2 g/dl Hematocrit 28.1 % Mean 91.5 fl Corpuscular Volume Mean 30.0 pg Corpuscular Hemoglobin Mean 32.7 g/dl Corpuscular Hemoglobin Conc ent Red Cell 14.6 % Distribution Width Platelet Count 281 10^3/UL Mean Platelet 9.6 fl Volume Immature 0.300 % Granulocytes % Neutrophils % 72.4 % Lymphocytes % 21.0 % Monocytes % 4.6 % Eosinophils % 1.6 % Basophils % 0.1 % Nucleated Red 0.0 /100WBC Blood Cells % Immature 0.020 10^3/ul Granulocytes # Neutrophils # 4.9 10^3/ul Lymphocytes # 1.4 10^3/ul Monocytes # 0.3 10^3/ul Eosinophils # 0.1 10^3/ul Basophils # 0.0 10^3/ul Nucleated Red 0.0 10^3/ul Blood Cells # Prothrombin 13.5 Sec Time Prothrombin 1.1 Time Ratio INR 1.02 International Normalized Rati o Activated 33.3 Sec Partial Thrombo plast Time Fibrinogen 533.0 mg/dl Plasma Fibrin <10 ug/ml Degradation Pro ducts Sodium Level 142 mmol/L Potassium Level 4.1 mmol/L Chloride Level 102 mmol/L Carbon Dioxide 25 mmol/L Level Anion Gap 15 Blood Urea 8 mg/dl Nitrogen Creatinine 0.48 mg/dl Est Glomerular > 60 mL/min Filtrat Rate mL/min Glucose Level 146 mg/dl Uric Acid 5.9 mg/dl Calcium Level 7.8 mg/dl Total Bilirubin 0.3 mg/dl Direct 0.00 mg/dl Bilirubin Indirect 0.3 mg/dl Bilirubin Aspartate Amino 31 IU/L Transf (AST/SGO T) Alanine 23 IU/L Aminotransferas e (ALT/SGPT) Alkaline 124 IU/L Phosphatase Total Protein 6.6 g/dl Albumin 3.2 g/dl Globulin 3.40 g/dl Albumin/Globuli 0.94 n Ratio Bedside Glucose 143 mg/dL Test 11/05/18 08:11 11/05/18 11:24 11/05/18 12:14 Bedside Glucose 117 mg/dL Hemoglobin A1c 7.2 % Lab Scanned REFERENCE Report LAB [id number] OB Assessment/Plan Other Assessment: Status post section and BTL for gestational hypertension and GDM on insulin. postop day #4 Elevated blood pressure, patient with history of chronic hypertension. Had been on labetalol 200 mg 3 times daily elevated blood pressure in the range of 170s- 180s, over 90s 100 noted last night Status post IV hydralazine Blood pressure medication switched to nifedipine 60 mg extended release with labetalol 200 mg p.o. twice daily asymptomatic Continue above regimen. May switch to her regular regimen that she was prior to after 6 weeks this has been discussed with the patient. We will monitor blood pressure closely today May anticipate discharge home tomorrow if the blood pressure well controlled Pre-gestational diabetes. Start metformin 850 mg p.o. daily Continue monitoring blood sugar before meals and nightly Patient needs to have a follow-up as outpatient with the primary physician and endocrinology for management of diabetes and chronic hypertension within 2 weeks after discharge from the hospital patient likely has pre-gestational diabetes Hemoglobin A1c 7.5 JEANNIE BAXTER MD Nov 05, 2018 12:43
[2018-11-05] MEDS ORDERED: GLUCOSE GEL 15 GRAM TUBE PO PRN ×2 (13:30)
[2018-11-05] MEDS ORDERED: GLUCOSE GEL 15 GRAM TUBE BUCCAL PRN (13:30)
[2018-11-05] MEDS ORDERED: GLUCAGON 1 MG INJ IM PRN (13:30)
[2018-11-05] MEDS ORDERED: DEXTROSE 50% 50 ML SYRINGE IV PRN ×2 (13:30)
--- NOTE | 2018-11-05 18:12 | NUR ---
EOSS: VS TAKEN, RECORDED, AND STABLE. PATIENT VOIDED, HAD BM, AMBULATED, STERI-STRIPS OPEN TO AIR. HGB A1C DONE TODAY PER DR. BAXTER AND WAS 7.2. DR. BAXTER ORDERED METFORMIN 850 MG PO WITH BREAKFAST. DR. BAXTER CHANGED NIFEDIPINE DOSE TODAY TO 60 MG PO DAILY AND NORMODYNE 200 MG PO BID AND KEPT THE PATIENT ONE MORE DAY TO MONITOR BLOOD PRESSURE. PAIN WELL CONTROLLED WITH SCHEDULED IBUPROFEN. BONDING WELL WITH BABY.
[2018-11-05] MEDS: LABETALOL 200 MG TAB PO SCH (21:41)
[2018-11-06 04:15] VITALS: PULSE 94
[2018-11-06 05:15] VITALS: BP 156/75; PULSE 91; RESP 19
[2018-11-06] MEDS: IBUPROFEN 800 MG TAB PO SCH ×3 (06:10→17:22)
[2018-11-06 07:49] VITALS: BP 160/76; PULSE 91; RESP 18
[2018-11-06] MEDS ORDERED: metFORMIN 850 MG TAB PO SCH (08:05)
[2018-11-06] MEDS: LABETALOL 200 MG TAB PO SCH (08:43)
[2018-11-06] MEDS ORDERED: NIFEdipine (XL) 60 MG TAB PO SCH (09:00)
[2018-11-06 11:22] VITALS: BP 147/71; PULSE 92; RESP 20
--- NOTE | 2018-11-06 14:00 | NUR ---
CALLED [facility] AND LEFT MESSAGE ON PHONE REGARDING PT, WANTS TO GO HOME TO DAY . ALSO NOTIFIED CHARGE NURSE .
--- NOTE | 2018-11-06 16:39 | DS ---
Date/Time of Note Date/Time of Note DATE: 11/06/18 TIME: 16:36 Obstetrical Discharge Record Final Diagnosis Final Diagnosis: Term delivered Other Final Diagnosis postoperatively she had BM, tolerating regular diet, ambulating well and remained afebrile. her hypertension is controlled by Procardia and Labetalol, I provided her Rx for [place] #30 and Procardia XL 60 mg daily and Labetalol 200 mg TID. she has appt at [facility] in am for BP check. Vaginal Delivery Obstetrical Delivery: Bilateral Tubal Ligation Section Section: Repeat Complications Gestational Diabetes, Preg induced Hypertension Augmentation: No Induction: No Condition on Discharge Physical Assessment Voiding: Yes Bowel Movement: Yes Breast: Soft, non-tender, Filling Fundus: Firm Abdomen and Incision: soft, obese, appropriate tenderness. incision is clean without sign of infection. Calf Tenderness: No Patient Condition: Good FREDI STONE MD Nov 06, 2018 16:39
[2018-11-06 16:40] VITALS: BP 111/57; PULSE 96; RESP 18
--- NOTE | 2018-11-06 17:58 | NUR ---
DISCHARGE TEACHING GIVEN TO PT, REMINDED PT, REGARDING SIDE EFFECT OF MEDICATION ALSO PREVENTION OF INFECTION . FOLLOW UP IN CLINIC .DISCHARGED HOME WITH BABY AND FAMILY .
== END 2018-11-06 17:50 | disposition home or self-care (01) | DRG 785 ==
LOC: OBT 11:41 → L-D 11:41 → OBT 16:41 → L-D 11-01 16:33 → PP1 11-01 23:21
PROVIDERS: ADMIT Specialist; ATTEND Specialist
PROC: 0UB70ZZ Excision of Bilateral Fallopian Tubes, Open Approach (ICD-10-PCS; 2018-11-01)
PROC: 10D00Z1 Extraction of Products of Conception, Low, Open Approach (ICD-10-PCS; principal; 2018-11-01 16:45)
DX: O24.424 Gestational diabetes mellitus in childbirth, insulin controlled (principal); E66.9 Obesity, unspecified; O99.214 Obesity complicating childbirth; O13.4 Gestational [pregnancy-induced] hypertension without significant proteinuria, complicating childbirth; O34.211 Maternal care for low transverse scar from previous cesarean delivery; Z3A.37 37 weeks gestation of pregnancy; Z37.0 Single live birth; Z30.2 Encounter for sterilization
CPT/HCPCS: 76818; 80053; 81001; 81003; 82947; 82962; 83036; 83735; 84560; 85025; 85362; 85384; 85610; 85730; 86592; 86703; 86762; 86850; 86900; 86901; 87340; 88302; 99464; G0463; J0360; J0690; J1200; J1885; J2175; J2210; J2250; J2274; J2405; J2590; J2765; J3475; J7120; J7121